=== PATIENT | female | born 1970 ===

== ENCOUNTER 2017-02-26 13:04 | Emergency (ER) | payer MEDICAID ==
[2017-02-26 13:56] VITALS: RESP 18; O2SAT 95
[2017-02-26] MEDS ORDERED: Naproxen 550 mg Tab PO STA (16:47)
[2017-02-26] MEDS ORDERED: Naproxen 550 mg Tab PO ONE (16:52)
--- NOTE | 2017-02-26 16:52 | C.PDOC ---
History Of Present Illness Pt c/o b/l anterior knee pain. Time Seen by Provider: 02/26/17 16:10 Chief Complaint (Nursing): Pain, Chronic History Per: Patient Onset/Duration Of Symptoms: Days (about 1 year), Waxing/Waning Current Symptoms Are (Timing): Still Present Severity: Moderate Additional History Per: Prior Records Past Medical History Reviewed: Historical Data, Nursing Documentation, Vital Signs Vital Signs: Last Vital Signs Temp 97.9 F 02/26/17 13:53 Pulse 103 H 02/26/17 13:53 Resp 18 02/26/17 13:53 BP 149/96 H 02/26/17 13:53 Pulse Ox 95 02/26/17 13:53 - Medical History PMH: Asthma, Depression, HTN Family History: States: Unknown Family Hx - Social History Hx Tobacco Use: No Hx Alcohol Use: No Hx Substance Use: No - Immunization History Hx Tetanus Toxoid Vaccination: Yes Hx Influenza Vaccination: No Hx Pneumococcal Vaccination: Yes Review Of Systems Except As Marked, All Systems Reviewed And Found Negative. Constitutional: Negative for: Fever, Weakness Cardiovascular: Negative for: Chest Pain Respiratory: Negative for: Shortness of Breath, Hemoptysis Gastrointestinal: Negative for: Vomiting, Abdominal Pain Musculoskeletal: Negative for: Neck Pain Skin: Negative for: Rash Neurological: Negative for: Weakness, Numbness Physical Exam - Physical Exam Appears: Non-toxic, No Acute Distress Skin: Normal Color, Warm, Dry, No Rash Head: Atraumatic, Normacephalic Eye(s): bilateral: PERRL, EOMI Neck: Normal ROM, Supple Cardiovascular: Rhythm Regular Respiratory: Normal Breath Sounds, No Accessory Muscle Use Gastrointestinal/Abdominal: Soft, No Tenderness Back: No Vertebral Tenderness Extremity: Normal ROM, Tenderness (mild tenderness of b/l lateral aspect of anterior knee), No Deformity Pulses: Left Dorsalis Pedis: Normal, Right Dorsalis Pedis: Normal Neurological/Psych: Oriented x3, Normal Motor, Normal Sensation ED Course And Treatment O2 Sat by Pulse Oximetry: 95 Pulse Ox Interpretation: Normal Disposition Counseled Patient/Family Regarding: Diagnosis, Need For Followup, Rx Given - Disposition Referrals: Jairon Pringle MD [Staff Provider] - Disposition: HOME/ ROUTINE Disposition Time: 16:52 Condition: STABLE Additional Instructions: Follow up with your doctor for further evaluation and treatment. Return to the ER if you develop worsening of symptoms or if you have any other concerns. Prescriptions: Naproxen [Naprosyn] 1 tab PO BID PRN #30 tab PRN Reason: Pain Instructions: Knee Pain (ED) Forms: [facility] (Yakut) - Clinical Impression Clinical Impression: Bilateral knee pain
[2017-02-26 16:59] VITALS: BP 130/80; PULSE 94; TEMP 98.2
== END 2017-02-26 16:59 | disposition home or self-care (01) ==
LOC: C.ER 13:04
DX: M25.561 Pain in right knee (principal); M25.562 Pain in left knee